=== PATIENT | female | born 1995 | race Two or more races ===

== ENCOUNTER 2024-04-27 03:25 | Emergency (ER) | payer BC, MEDICAID, SELFPAY ==
[2024-04-27 03:26] VITALS: BMI 33.0
--- NOTE | 2024-04-27 03:50 | XR_ITS ---
Examination: PA lateral chest 2 views TECHNIQUE: Upright PA lateral chest 2 views Exam date and time: April 27, 2024 0358 hours Comparison 11/19/2021 INDICATIONS: Coughing chest pain beginning 2 days ago. FINDINGS: Normal heart size. Lungs are clear. The osseous structures are intact IMPRESSION: No active disease
--- NOTE | 2024-04-27 03:50 | EKG_ITS ---
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
--- NOTE | 2024-04-27 03:50 | PD.EDRME ---
Rapid Medical Screening Exam RME Arrival date/time: 04/27/24 03:25 28 year old female present to ED for c/o cough, chest pain, fever for 1 day I have greeted and performed a focused initial assessment of this patient. A comprehensive ED assessment and evaluation of the patient, analysis of all test results, and completion of the medical decision making process will be conducted by additional ED providers. Chief Complaint: Flu Like Symptoms Time Seen by Provider: 04/27/24 03:32
[2024-04-27 03:51] VITALS: BP 119/72; PULSE 95; RESP 18; TEMP 37.1; O2SAT 99
--- NOTE | 2024-04-27 05:13 | PD.EDURI ---
Upper Respiratory Inf. RME/HPI General Chief Complaint: Flu Like Symptoms Stated Complaint: SOB, FEVER, COUGH, PAIN IN CHEST Time Seen by Provider: 04/27/24 03:32 Arrival date/time: 04/27/24 03:25 28 year old female present to emergency room with c/o of cough, fever, chest pain ( with cough) for 1 day. daughter have similar symptoms LOCATION: chest SEVERITY: Symptoms are described as being severe with limitations on activities of daily living CONTEXT: The patient is unable to identify any inciting events. DURATION/TIMING: The symptoms started approximately one day ago and have been constant since and have been progressive getting worse. ASSOCIATED SYMPTOMS: The patient is unable to identify any other associated symptoms. MODIFYING FACTORS: The patient is unable to identify any alleviating or aggravating symptoms. PERTINENT ROS: no nausea,vomiting, diarrhea, no dizziness/headache no rash no loc/syncope episode no abd/back pain no dsyuria,urgency,frequency REVIEW OF SYSTEMS: See History of Present Illness - with the exception of those mentioned in the history of present illness, all other systems reviewed and reported as negative GENERAL: In general the patient is awake, interactive, in an emergency department gurney. HEAD/EYES/EARS/NOSE/THROAT: normo-cephalic, atraumatic, mucus membranes are moist, anicteric, palpebral conjunctiva is pink, trachea is midline. CARDIOVASCULAR: regular rate and regular rhythm, no murmurs, heart sounds are not distant, strong pulses in all four extremities that are equal and symmetric bilateral upper and lower extremities, normal capillary refill. CHEST/PULMONARY: normal chest rise and fall, good air movement, clear to auscultation bilaterally, normal inspiratory to expiratory ratios without evidence of respiratory distress. NECK: No midline/Paraspinal tenderness, no step off ROM/Strenght intact No Kernig and bruzinski sign. No trauma ABDOMEN: soft, not tender, no masses appreciated BACK: normal range of motion without pain. NEUROLOGICAL: cranio-facial features are symmetric, moves all four extremities equally without obvious limitations or weakness. EXTREMITY: no tenderness to palpation over the long bones or large joints of the bilateral upper and lower extremities, no joint swelling, no joint erythema, no signs of trauma, no unilateral leg swelling and no peripheral edema. SKIN: warm, dry, well-perfused, no jaundice, no rash, no telangiectasias or petechia. PSYCH: calm, cooperative, no evidence of psychosis or agitation RME / HPI RME / HPI Narrative: 04/27/24 03:25 28 year old female present to ED for c/o cough, chest pain, fever for 1 day I have greeted and performed a focused initial assessment of this patient. A comprehensive ED assessment and evaluation of the patient, analysis of all test results, and completion of the medical decision making process will be conducted by additional ED providers. Related Data Home Medications ?Medication ?Instructions ?Recorded ?Confirmed vit no.95-ferrous 1 tab PO QDAY 11/05/23 02/17/24 fumarate 28 mg-folic acid 800 mcg tablet () Previous Rx's ?Medication ?Instructions ?Recorded docusate sodium 100 mg capsule 100 mg PO BID #60 caps 02/18/24 (Colace) hydrocortisone 2.5 % topical cream [address] QDAY PRN hemorrhoids 02/18/24 with perineal applicator #30 appful (Proctosol HC) ibuprofen 800 mg tablet 800 mg PO Q6H PRN pain #120 tabs 02/18/24 lanolin 50 % topical ointment 1 applic topical TID PRN skin 02/18/24 irritation #15 tubes witch edwardo 50 % topical pads 1 pad topical BID #100 ea 02/18/24 (Tucks (witch edwardo)) oseltamivir 75 mg capsule (Tamiflu) 75 mg PO BID 5 days #10 caps 04/27/24 Allergies Allergy/AdvReac Type Severity Reaction Status Date / Time No Known Allergies Allergy Verified 02/17/24 19:22 Course Course Course Narrative: Patient presenting with influenza like symptoms.? Obtained influenza A/B screen, which revealed positive influenza.? The following were considered in the patient's differential diagnosis but was not deemed to be consistent with patient's history of present illness and/or physical examination; meningitis, pharyngitis, otitis media, pneumonia, urinary tract infection, peritonsillar abscess, retropharyngeal abscess.? As patient does not present with any signs/symptoms of pneumonia or other complications, further labwork at this time. Educated patient on diagnosis and natural course of influenza.? Supportive care and preventive measures were discussed.? Continue fluid hydration. Follow up with primary physician in 3-5 days if symptoms continue or new problems arise. Return if having persistent high fever, altered mental status, shortness of breath, uncontrolled vomiting, or other concerns.? ? Plan:? Prescribed tamiflu Advised patient on support therapies, including rest, advancement of fluids as tolerated, thorough handwashing w/ soap and H2O, taking OTC ibuprofen or acetaminophen as directed, OTC expectorant/antitussive/decongestants as directed. Advised patient to refrain from visiting work, school, or daycares or visiting women, elderly, or those w/ chronic illnesses. Advised patient to return with new or worsening symptoms. Quality Measures none Orders Category Date Time Status Bedside COVID-19 Antigen Test NOW Care 04/27/24 03:50 Active Bedside Influenza A&B Antigen Test NOW Care 04/27/24 03:51 Completed EKG (ED ONLY) *Do not use* NOW Care 04/27/24 03:51 Completed EKG (ED Only) Stat Exams 04/27/24 03:50 Draft XR chest 2V Stat Exams 04/27/24 03:50 Taken Oseltamivir [Tamiflu] Med 04/27/24 05:23 Discontinued 75 mg PO X1 ONE Vital Signs Vital signs: Vital Signs Temperature 98.8 F 04/27/24 03:51 Pulse Rate 95 04/27/24 03:51 Respiratory Rate 18 04/27/24 03:51 Blood Pressure 119/72 04/27/24 03:51 Pulse Oximetry (%) 99 04/27/24 03:51 Oxygen Delivery Method Room Air 04/27/24 03:51 Procedures -ED EKG Interpretation #1: Date of EK04/27/24 Rate: 81 Interpretation: Reviewed by me EKG Impression: Normal sinus rhythm, No acute ST-T changes, No ectopy, No ischemic changes and Normal QRS Upper Respiratory Infection Patient data External records reviewed:: [facility] previous records Clinical information provided by:: patient Social determinants that could affect healthcare access:: none Patient has the following chronic illnesses:: none How is presenting disease/condition affected by chronic disease/condition?: no chronic disease Evaluation data The following diagnostics were reviewed and interpreted by me:: lab results, radiology exam(s) and EKG tracing(s) Lab and/or radiology exams considered but not ordered:: none Interpretation Summary: xray: nad + flu a -flu b, covid Medications / Prescriptions Medications or Prescriptions considered but not ordered:: none Medication administrations:: Medication Administration History Discontinued Medications Oseltamivir Phosphate (Oseltamivir 75 Mg Capsule) 75 mg PO X1 ONE Stop: 04/27/24 05:24 none Consultations Consultation(s) initiated? (list below): No Diagnosis Upper Respiratory Differential Diagnosis: upper respiratory infection, viral infection, bronchitis, influenza and other (pna, [place]) Most likely diagnosis given after review of the tests above:: flu a Admission Indicated Admission indicated?: not indicated Admission Request Was there a request for admission?: No Disposition Plan Disposition Plan: Discharge Discharge Attestation Discharge Attestation: The patient and all family members were given an opportunity to ask questions and understood the discharge instructions. Discharge instructions specifically effects, indications for sooner follow up or return to the emergency department, and the expected course of current diagnosis. Patient condition: Stable Discharge Plan Plan Patient Disposition: HOME (Self Care) Health Concerns: Follow with PMD as directed Take tylenol or motrin as need Return to ED if sx worsen Prescriptions/Referrals Prescriptions/Med Rec: New oseltamivir [Tamiflu] 75 mg capsule 75 mg PO BID 5 Days Qty: 10 0RF No Action PNV cmb#95-ferrous fumarate-FA [] 28 mg iron- 800 mcg tablet 1 tab PO QDAY Patient Comments: TAKE 1 TABLET BY MOUTH EVERY DAY FOR 90 DAYS ibuprofen 800 mg tablet 800 mg PO Q6H MDD 4 PRN (Reason: pain) Qty: 120 0RF lanolin 50 % ointment 1 applic topical TID PRN (Reason: skin irritation) Qty: 15 0RF docusate sodium [Colace] 100 mg capsule 100 mg PO BID Qty: 60 0RF Tucks (witch edwardo) 50 % pads, medicated 1 pad topical BID Qty: 100 0RF hydrocortisone [Proctosol HC] 2.5 % cream with perineal applicator [address] QDAY PRN (Reason: hemorrhoids) Qty: 30 0RF Referrals: Titus Pickering PA-C [Primary Care Provider] - In 1 week Problem List Clinical Impression: Influenza Patient/Caregiver Discharge Instructions Education Materials: ED Influenza (Adult) Print Language: Citizen Of [place] Stand Alone Forms: Sol Award Info., Patient Portal Info Letter
[2024-04-27] MEDS: OSELTAMIVIR 75 MG CAPSULE PO (05:49)
== END 2024-04-27 06:17 | disposition home or self-care (01) ==
PROVIDERS: Emergency Provider Emergency Medicine; PCP Family Medicine
DX: J11.1 Influenza due to unidentified influenza virus with other respiratory manifestations (principal)
CPT/HCPCS: 71046; 87400; 87811; 93005; 99283; A9270

== ENCOUNTER 2024-05-14 15:10 | Emergency (ER) | payer MEDICAID, SELFPAY ==
[2024-05-14 15:11] VITALS: BMI 34.0
[2024-05-14 15:34] VITALS: BP 141/95; PULSE 78; RESP 18; TEMP 36.8; O2SAT 98
--- NOTE | 2024-05-14 15:40 | EKG_ITS ---
[facility] Test Date: 2024-05-14 Pat Name: MARTHA GUTIERREZ Department: Room: - Gender: Female Group [employer] Machine: : 1995 Requested By: Errol Hilario Order Number: [id number] Reading MD: Errol Hilario Measurements Intervals [place] Rate: 70 P: 32 [place]: 141 QRS: 34 QRSD: 88 T: 23 QT: 386 QTc: 418 Interpretive Statements SINUS RHYTHM Compared to ECG 04/27/2024 04:08:30 No significant changes /store/S0/[id number].pdf
--- NOTE | 2024-05-14 16:01 | XR_ITS ---
Examination: CT brain head without contrast. 2-D sagittal coronal reconstructions Date and time of exam:May 14, 2024 1621 hours INDICATIONS: Onset headaches with dizziness today CTDI: vol (mGy):56 DLP: (mGycm):1129 Technique: Multiple CT axial sections of the brain have been obtained, 5 mm slice thickness. Contrast has not been administered. 2-D sagittal, coronal reconstructions have been obtained Low dose protocols were performed. One or more of the following dose reduction techniques were used; automated exposure control, adjustment of the mA and/or KV according to patient size, use of iterative reconstruction technique. Findings: No significant ventricular enlargement. Intra-axial or extra-axial hemorrhage density is not seen. No mass effect or midline shift Basal cisterns are not remarkable. Fourth ventricle is midline. Cranial vault intact. Impression: Negative for acute hemorrhage, mass effect or midline shift Chronic ethmoid maxillary antral sinusitis
--- NOTE | 2024-05-14 16:02 | PD.EDRME ---
Rapid Medical Screening Exam E Arrival date/time: 05/14/24 15:10 28-year-old female presents to the emergency department with complaints of intermittent dizziness ongoing for 1 month. I have greeted and performed a focused initial assessment of this patient. Initial appropriate labs ordered at this time. A comprehensive ED assessment and evaluation of the patient and analysis of all test and completion of medical decision making process will be conducted by additional ED provider. Chief Complaint: Dizziness Time Seen by Provider: 05/14/24 15:53 Vital signs: Vital Signs Temperature 98.3 F 05/14/24 15:34 Pulse Rate 78 05/14/24 15:34 Respiratory Rate 18 05/14/24 15:34 Blood Pressure 141/95 H 05/14/24 15:34 Pulse Oximetry (%) 98 05/14/24 15:34 Oxygen Delivery Method Room Air 05/14/24 15:34
[2024-05-14 16:32] LABS: Basophils # (Auto) 0.1 Thou/mm3 (0.0-0.2); Basophils % (Auto) 1 % (0-2.5); Eosinophils # (Auto) 0.6 Thou/mm3 (0.0-0.5); Eosinophils % (Auto) 5 % (0-10); Hematocrit 41.5 % (36.0-46.0); Hemoglobin 14.1 g/dL (12.0-16.0); Immature Granulocytes % (Auto) 0 % (0-0); Immature Granulocytes Auto 0.02 Thou/mm3 (0.00-0.00); Lymphocytes # (Auto) 2.5 Thou/mm3 (1.0-4.8); Lymphocytes % (Auto) 24 % (10-50); Mean Corpuscular Hemoglobin 29.3 pg (25.0-35.0); Mean Corpuscular Volume 86 fL (80-100); Monocytes # (Auto) 0.9 Thou/mm3 (0.0-0.8); Monocytes % (Auto) 8 % (0-12); Neutrophils # (Auto) 6.5 Thou/mm3 (1.8-7.7); Neutrophils % (Auto) 62 % (37-80); Nucleated Red Blood Cell % 0 /100 WBC (0); Platelet Count 253 Thou/mm3 (140-440); RDW Standard Deviation 42.1 fL (36.4-46.3); Red Blood Count 4.82 Miln/mm3 (4.00-5.20); White Blood Count 10.5 Thou/mm3 (3.6-11.0)
[2024-05-14 17:15] LABS: Alanine Aminotransferase 28 U/L (10-49); Albumin, Serum 4.6 gm/dL (3.5-5.0); Albumin/Globulin Ratio 1.5 (1.2-2.2); Alkaline Phosphatase 122 U/L (46-116); Anion Gap 9 (7-16); Aspartate Amino Transferase 19 U/L (0-34); BUN/Creatinine Ratio 14 Ratio (12-20); Bilirubin,Total 0.3 mg/dL (0.3-1.2); Blood Urea Nitrogen 11 mg/dL (9-23); Calcium 9.6 mg/dL (8.3-10.6); Calcium (Corrected) 9.6 mg/dL (8.5-10.1); Chloride 103 mMol/L (98-107); Creatinine (Component) 0.8 mg/dL (0.6-1.3); Estimated Creatinine Clearance 133.4 mL/min (>60); Globulin 3.1 gm/dL (2.3-3.5); Glucose 98 mg/dL (74-106); Lipase 43 U/L (12-53); Osmolality,Calculated 278 (275-295); Potassium 4.1 mMol/L (3.4-5.1); Sodium 140 mMol/L (136-145); Total Protein 7.7 gm/dL (5.7-8.2); eGFR > 60 See Note
[2024-05-14 17:23] LABS: Collection Type, Urine Clean Catch
[2024-05-14 17:32] LABS: HCG Qualitative,Urine Negative
[2024-05-14 17:33] LABS: Bilirubin,Urine Negative (Negative); Blood,Urine Negative (Negative); Clarity,Urine Clear (Clear/Hazy); Color,Urine Colorless (Lt Yel-Yel); Glucose, Urine Negative (Negative); Ketones,Urine Negative (Negative); Leukocyte Esterase,Urine Negative (Negative); Nitrite,Urine Negative (Negative); PH,Urine 6.5 (5.0-7.0); Protein,Urine Negative (Neg - Trace); RBC,Urine 2 /hpf (0-3); Specific Gravity,Urine 1.008 (1.001-1.035); Squamous Epithelial Cell,Urine 4 /hpf (0-5); Urobilinogen,Urine Negative mg/dL (0.0-1.0); WBC,Urine 1 /hpf (0-5)
--- NOTE | 2024-05-14 19:34 | EDNOTE_ITS ---
ED Dizzyness RME/HPI General Chief Complaint: Dizziness Stated Complaint: DIZZY FOR 3 WEEKS Time Seen by Provider: 05/14/24 15:53 Source: patient Arrival date/time: 05/14/24 15:10 28-year-old female presents emergency department complaining of intermittent dizziness and headache that been ongoing for 3 months. Denies fever, chills, extremity weakness, vomiting, vision changes, or any other associated symptoms. Mode of arrival: ambulatory Limitations: no limitations RME / HPI RME / HPI Narrative: 05/14/24 15:10 28-year-old female presents to the emergency department with complaints of intermittent dizziness ongoing for 1 month. I have greeted and performed a focused initial assessment of this patient. Initial appropriate labs ordered at this time. A comprehensive ED assessment and evaluation of the patient and analysis of all test and completion of medical decision making process will be conducted by additional ED provider. Related Data Home Medications ?Medication ?Instructions ?Recorded ?Confirmed vit no.95-ferrous 1 tab PO QDAY 11/05/23 02/17/24 fumarate 28 mg-folic acid 800 mcg tablet () Previous Rx's ?Medication ?Instructions ?Recorded docusate sodium 100 mg capsule 100 mg PO BID #60 caps 02/18/24 (Colace) hydrocortisone 2.5 % topical cream 1 applic MT QDAY PRN hemorrhoids 02/18/24 with perineal applicator #30 appful (Proctosol HC) ibuprofen 800 mg tablet 800 mg PO Q6H PRN pain #120 tabs 02/18/24 lanolin 50 % topical ointment 1 applic topical TID PRN skin 02/18/24 irritation #15 tubes witch edwardo 50 % topical pads 1 pad topical BID #100 ea 02/18/24 (Tucks (witch edwardo)) acetaminophen 500 mg capsule 500 mg PO Q6H PRN pain #30 caps 05/14/24 Allergies Allergy/AdvReac Type Severity Reaction Status Date / Time No Known Allergies Allergy Verified 05/14/24 15:12 Review of Systems Review of Systems Systems Reviewed: All systems reviewed, normal except as documented Constitutional Constitutional: Reports system reviewed and no additional complaints, except as documented, Denies body ache(s), Denies chills, Denies fever(s) and Reports headache(s) Eyes Eyes: Reports system reviewed and no additional complaints, except as documented and Denies change in vision ENT Ears, Nose, Mouth, and Throat: Reports system reviewed and no additional complaints, except as documented, Denies disequilibrium, Denies dizziness, Reports headache(s), Denies sore throat and Denies vertigo Cardiovascular Cardiovascular: Reports system reviewed and no additional complaints, except as documented, Denies chest pain and Denies dyspnea Respiratory Respiratory: Reports system reviewed and no additional complaints, except as documented, Denies chest congestion, Denies cough and Denies dyspnea Gastrointestinal Gastrointestinal: Reports system reviewed and no additional complaints, except as documented, Denies abdominal pain, Denies nausea and Denies vomiting Musculoskeletal Musculoskeletal: Reports system reviewed and no additional complaints, except as documented, Denies abnormal gait and Denies arthralgias Integumentary/Breasts Skin/Breast: Reports system reviewed and no additional complaints, except as documented, Denies erythema, Denies rash and Denies wounds Neurologic Neurologic: Reports system reviewed and no additional complaints, except as documented, Denies abnormal gait, Denies disequilibrium, Denies dizziness, Reports headache(s) and Denies vertigo Past Medical History Past Medical History NEUROLOGIC: Negative Neurological Disorders or Seizures CARDIAC: Negative Cardiac Disorders, Congestive Heart Failure, Edema or Cellulitis RESPIRATORY: Positive Asthma (inhaler last winter); Negative Chronic Obstructive Pulmonary Disease (COPD), Emphysema, Pneumonia, Pulmonary Fibrosis, Tuberculosis, Pulmonary Embolism, Pulmonary Edema or Sleep Apnea GASTROINTESTINAL: Positive Gastrointestinal Disorders, Pancreatitis, Gall Bladder Disease and Obesity; Negative Hepatitis GENITOURINARY: Positive Genitourinary Disorders (hx UTI); Negative Renal Disease REPRODUCTIVE: Positive Previous Pregnancies MUSCULOSKELETAL: Negative Musculoskeletal Disorders ENDOCRINE: Negative Endocrine Disorders, Diabetes Mellitus Type 1 or Diabetes Mellitus Type 2 HEMATOLOGIC: Negative Blood Disorders, Anemia or Sickle Cell Disease OTHER HISTORY: Negative Hospitalization, Autoimmune Disease, Shingles, Falls, Blood Transfusions, Anesthesia Reactions, Chemotherapy, Radiation Therapy, MRSA, Chicken Pox, Measles, Mumps or Cancer Family History FAMILY HISTORY: Positive Family Respiratory Disorders (grandfather -Asthma); Negative Family Psychiatric Problems, Family Cardiac Disorders, Family Gastrointestinal Problems, Family Cancer, Family Surgery or Family Anesthesia Reaction Surgical History SURGICAL: Negative Pacemaker or Section Social History SMOKING STATUS: Never smoker SECOND HAND EXPOSURE: No ED Exam General Limitations: Present no limitations General appearance: Present alert and in no apparent distress Head Head exam: Present atraumatic Eye Eye exam: Present normal appearance, PERRL and EOMI ENT ENT exam: Present normal exam, normal oropharynx and mucous membranes moist Neck Neck exam: Present normal inspection, full ROM and trachea midline Chest Chest inspection: Present normal inspection and symmetric chest wall rise Respiratory Respiratory exam: Present normal lung sounds bilaterally Cardiovascular Cardiovascular exam: Present regular rate, normal rhythm and normal heart sounds Abdominal Exam Abdominal exam: Present soft and normal bowel sounds Extremities Exam Extremities exam: Present normal inspection and full ROM Back Exam Back exam: Present normal inspection and full ROM Neurological Exam Neurological exam: Present alert, oriented X3 and CN II-XII intact Psychiatric Psychiatric exam: Present normal affect and normal mood Skin Skin exam: Present warm, dry, intact and normal color Course Quality Measures none Orders Category Date Time Status EKG (ED ONLY) *Do not use* NOW Care 05/14/24 15:[address] head/brain wo con Stat Exams 05/14/24 16:01 Completed EKG (ED Only) Stat Exams 05/14/24 15:40 Draft CBC Stat Lab 05/14/24 16:15 Completed Comprehensive Metabolic Panel Stat Lab 05/14/24 16:15 Completed HCG Qualitative,Urine Stat Lab 05/14/24 16:45 Completed Lipase Stat Lab 05/14/24 16:15 Completed Urinalysis Stat Lab 05/14/24 16:45 Completed Vital Signs Vital signs: Vital Signs Temperature 98.3 F 05/14/24 15:34 Pulse Rate 78 05/14/24 15:34 Respiratory Rate 18 05/14/24 15:34 Blood Pressure 141/95 H 05/14/24 15:34 Pulse Oximetry (%) 98 05/14/24 15:34 Oxygen Delivery Method Room Air 05/14/24 15:34 Percent room air within normal limits Procedures -ED EKG Interpretation #1: Date of EK05/14/24 Time of EK:44 Rate: 70 Interpretation: Interpreted by me EKG Impression: Normal sinus rhythm, No acute ST-T changes, No ectopy, No ischemic changes and Normal QRS Dizziness MDM Narrative MDM Narrative:: 28-year-old female presents emergency department complaining of intermittent dizziness and headache that been ongoing for 3 months. Denies fever, chills, extremity weakness, vomiting, vision changes, or any other associated symptoms. CBC is unremarkable for any leukocytosis. CMP was unremarkable for any elevated LFTs or gross electro abnormalities. Urinalysis was unremarkable as well. EKG sinus rhythm. CT of head unremarkable other than chronic ethmoid sinusitis which may be causing her headaches. Patient GCS of 15 with steady gait and appears nontoxic and is hemodynamically stable. Patient data External records reviewed:: [facility] previous records Clinical information provided by:: patient Social determinants that could affect healthcare access:: none Patient has the following chronic illnesses:: See chart How is presenting disease/condition affected by chronic disease/condition?: une ffected by Evaluation data The following diagnostics were reviewed and interpreted by me:: lab results, radiology exam(s) and EKG tracing(s) Lab and/or radiology exams considered but not ordered:: Ordered Interpretation Summary: Interpreted by me Medications / Prescriptions Medications or Prescriptions considered but not ordered:: N/A Medication administrations:: N/A Consultations Consultation(s) initiated? (list below): No Diagnosis Dizziness Differential Diagnosis: benign paroxysmal positional vertigo, orthostatic hypotension, vertebral basilar insufficiency, cerebrovascular accident and transient cerebral ischemia Most likely diagnosis given after review of the tests above:: Chronic ethmoid sinusitis Admission Indicated Admission indicated?: not indicated Admission Request Was there a request for admission?: No Disposition Plan Disposition Plan: Discharge Discharge Attestation Discharge Attestation: The patient and all family members were given an opportunity to ask questions and understood the discharge instructions. Discharge instructions specifically effects, indications for sooner follow up or return to the emergency department, and the expected course of current diagnosis. Patient condition: Stable Discharge Plan Plan Patient Disposition: HOME (Self Care) Disposition Comment: Stable Prescriptions/Referrals Prescriptions/Med Rec: New acetaminophen 500 mg capsule 500 mg PO Q6H PRN (Reason: pain) Qty: 30 0RF No Action PNV cmb#95-ferrous fumarate-FA [] 28 mg iron- 800 mcg tablet 1 tab PO QDAY Patient Comments: TAKE 1 TABLET BY MOUTH EVERY DAY FOR 90 DAYS ibuprofen 800 mg tablet 800 mg PO Q6H MDD 4 PRN (Reason: pain) Qty: 120 0RF lanolin 50 % ointment 1 applic topical TID PRN (Reason: skin irritation) Qty: 15 0RF docusate sodium [Colace] 100 mg capsule 100 mg PO BID Qty: 60 0RF Tucks (witch edwardo) 50 % pads, medicated 1 pad topical BID Qty: 100 0RF hydrocortisone [Proctosol HC] 2.5 % cream with perineal applicator 1 applic MT QDAY PRN (Reason: hemorrhoids) Qty: 30 0RF Referrals: Kendell Crabtree MD [Primary Care Provider] - In 1 week Problem List Clinical Impression: Chronic ethmoidal sinusitis Patient/Caregiver Discharge Instructions Discharge Activity: activity as tolerated Education Materials: Understanding Your Sinuses, ED Sinusitis (No Antibiotics) Additional Instructions: Plenty fluids and get plenty of rest. Take Tylenol as needed for pain. Follow-up with primary care provider and request referral to ENT if symptoms persist. Return to the emergency department for any worsening symptoms or as needed. Print Language: [place] Stand Alone Forms: Sol Award Info., Patient Portal Info Letter KADEEM/KERON Supervising Physician KADEEM/KERON Supervising Physician: Dr. Rai
[2024-05-14 19:44] VITALS: BP 140/88; PULSE 77; RESP 17; TEMP 36.7; O2SAT 97
== END 2024-05-14 19:49 | disposition home or self-care (01) ==
PROVIDERS: Nurse Practitioner Primary Care; Emergency Provider Emergency Medicine; PCP Family Medicine
DX: J32.2 Chronic ethmoidal sinusitis (principal); R42 Dizziness and giddiness
CPT/HCPCS: 36415; 70450; 80053; 81001; 81025; 83690; 85025; 93005; 99284

== ENCOUNTER 2024-06-04 17:05 | Emergency (ER) | payer MEDICAID, SELFPAY ==
[2024-06-04 17:06] VITALS: BMI 34.7
[2024-06-04 17:23] VITALS: BP 139/88; PULSE 100; RESP 18; TEMP 37.5; O2SAT 96
--- NOTE | 2024-06-04 17:40 | EDNOTE_ITS ---
ED General RME/HPI General Chief complaint: Fever Stated complaint: FEVER/CHILLS BODYACHE/DISCHARGE FROM LEFT BREAST Time Seen by Provider: 06/04/24 17:32 Arrival date/time: 06/04/24 17:05 28-year-old female presents to the emergency department today complaints of left breast discharge patient reports he is approximately 3 months and is currently breast-feeding patient does report she has had a fever Limitations: no limitations Related Data Home Medications ?Medication ?Instructions ?Recorded ?Confirmed vit no.95-ferrous 1 tab PO QDAY 11/05/2301/24 fumarate 28 mg-folic acid 800 mcg tablet () Previous Rx's ?Medication ?Instructions ?Recorded docusate sodium 100 mg capsule 100 mg PO BID #60 caps 02/18/24 (Colace) hydrocortisone 2.5 % topical cream 1 applic MS QDAY MS N hemorrhoids 02/18/24 with perineal applicator #30 appful (Proctosol HC) ibuprofen 800 mg tablet 800 mg PO Q6H PRN pain #120 tabs 02/18/24 lanolin 50 % topical ointment 1 applic topical TID PRN skin 02/18/24 irritation #15 tubes witch edwardo 50 % topical pads 1 pad topical BID #100 e a 02/18/24 (Tucks (witch edwardo)) acetaminophen 500 mg capsule 500 mg PO Q6H PRN pain #3 0 caps 05/14/24 amoxicillin 875 mg-potassium 1 tab PO BID 10 days #20 tabs 06/04/24 clavulanate 125 mg tablet ibuprofen 800 mg tablet 800 mg PO TID PRN pain #30 t abs 06/04/24 Allergies Allergy/AdvReac Type Severity Reaction Status Date / Time No Known Allergies Allergy Verified 06/04/24 17:08 Review of Systems Review of Systems Systems Reviewed: All systems reviewed, normal except as documented Constitutional Constitutional: Reports system reviewed and no additional complaints, except as documented, Denies fever(s) and Denies headache(s) Eyes Eyes: Reports system reviewed and no additional complaints, except as documented and Denies blurry vision ENT Ears, Nose, Mouth, and Throat: Reports system reviewed and no additional complaints, except as documented, Denies headache(s), Denies nasal congestion and Denies nasal discharge Cardiovascular Cardiovascular: Reports system reviewed and no additional complaints, except as documented, Denies chest pain and Denies dyspnea Respiratory Respiratory: Reports system reviewed and no additional complaints, except as documented, Denies chest congestion, Denies cough and Denies dyspnea Gastrointestinal Gastrointestinal: Reports system reviewed and no additional complaints, except as documented and Denies abdominal pain Genitourinary Genitourinary: Reports nipple discharge Integumentary/Breasts Skin/Breast: Reports system reviewed and no additional complaints, except as documented, Denies rash, Denies skin swelling, Denies unusual bruising, Reports breast pain and Reports nipple discharge Neurologic Neurologic: Reports system reviewed and no additional complaints, except as documented, Reports as per HPI and Denies headache(s) Past Medical History Past Medical History NEUROLOGIC: Negative Neurological Disorders or Seizures CARDIAC: Negative Cardiac Disorders, Congestive Heart Failure, Edema or Cellulitis RESPIRATORY: Positive Asthma (inhaler last winter); Negative Chronic Obstructive Pulmonary Disease (COPD), Emphysema, Pneumonia, Pulmonary Fibrosis, Tuberculosis, Pulmonary Embolism, Pulmonary Edema or Sleep Apnea GASTROINTESTINAL: Positive Gastrointestinal Disorders, Pancreatitis, Gall Bladder Disease and Obesity; Negative Hepatitis GENITOURINARY: Positive Genitourinary Disorders (hx UTI); Negative Renal Disease REPRODUCTIVE: Positive Previous Pregnancies MUSCULOSKELETAL: Negative Musculoskeletal Disorders ENDOCRINE: Negative Endocrine Disorders, Diabetes Mellitus Type 1 or Diabetes Mellitus Type 2 HEMATOLOGIC: Negative Blood Disorders, Anemia or Sickle Cell Disease OTHER HISTORY: Negative Hospitalization, Autoimmune Disease, Shingles, Falls, Blood Transfusions, Anesthesia Reactions, Chemotherapy, Radiation Therapy, MRSA, Chicken Pox, Measles, Mumps or Cancer Family History FAMILY HISTORY: Positive Family Respiratory Disorders (grandfather -Asthma); Negative Family Psychiatric Problems, Family Cardiac Disorders, Family Ga strointestinal Problems, Family Cancer, Family Surgery or Family Anesthesia Reaction Surgical History SURGICAL: Negative Pacemaker or Section Social History SMOKING STATUS: Never smoker SECOND HAND EXPOSURE: No ED Exam General Limitations: Present no limitations General appearance: Present alert and in no apparent distress Head Head exam: Present atraumatic, normocephalic and normal inspection Eye Eye exam: Present normal appearance, PERRL and EOMI; Absent conjunctival injection ENT ENT exam: Present normal exam, normal oropharynx and mucous membranes moist Neck Neck exam: Present normal inspection, full ROM and trachea midline Chest Chest inspection: Present symmetric chest wall rise and tenderness (Left breast pain) Respiratory Respiratory exam: Present normal lung sounds bilaterally Cardiovascular Cardiovascular exam: Present regular rate, normal rhythm and normal heart sounds Abdominal Exam Abdominal exam: Present soft and normal bowel sounds Extremities Exam Extremities exam: Present normal inspection and full ROM Back Exam Back exam: Present normal inspection and full ROM Neurological Exam Neurological exam: Present alert, oriented X3 and CN II-XII intact Psychiatric Psychiatric exam: Present normal affect and normal mood Skin Skin exam: Present warm, dry, intact and normal color Course Quality Measures none Orders Category Date Time Status Lidocaine 1% 20 ml [Xylocaine 1% 20 ML] Med 06/04/24 17:32 Discontinued 2.1 ml INFL X1 ONE cefTRIAXone [Rocephin] Med 06/04/24 17:32 Discontinued 1,000 mg IM X1 ONE Vital Signs Vital signs: Vital Signs Temperature 99.5 F 06/04/24 17:23 Pulse Rate 100 06/04/24 17:23 Respiratory Rate 18 06/04/24 17:23 Blood Pressure 139/88 H 06/04/24 17:23 Pulse Oximetry (%) 96 06/04/24 17:23 Oxygen Delivery Method Room Air 06/04/24 17:23 O2 saturation 96% room air within normal limits [facility] Patient data External records reviewed:: [facility] previous records Clinical information provided by:: patient Social determinants that could affect healthcare access:: none Patient has the following chronic illnesses:: None How is presenting disease/condition affected by chronic disease/condition?: no chronic disease Evaluation data The following diagnostics were reviewed and interpreted by me:: other (specify) (N/A) Lab and/or radiology exams considered but not ordered:: Consider not ordered Interpretation Summary: N/A Medications Medications considered but not ordered:: Given Medication administrations:: Medication Administration History Discontinued Medications Ceftriaxone Sodium (Ceftriaxone Sod Inj 1,000 Mg Vial) 1,000 mg IM X1 ONE Stop: 06/04/24 17:33 Last Admin: 06/04/24 17:59 Dose: 1,000 mg Documented By: CHEYANNE Comments: 2.1 ml lidocaine Lidocaine HCl (Lidocaine Hcl 1% 20 Ml Vial) 2.1 ml INFL X1 ONE Stop: 06/04/24 17:33 Last Admin: 06/04/24 18:00 Dose: 2.1 ml Documented By: KF Given Consultations Consultation(s) initiated? (list below): No Diagnosis Differential Diagnosis ED Complaint MDM: Abscess, cellulitis, mastitis Most likely diagnosis given after review of the tests above:: Mastitis Admission Indicated Admission indicated?: not indicated Explain why admission is indicated or not indicated:: No criteria Admission Request Was there a request for admission?: No Disposition Plan Disposition Plan: Discharge Discharge Attestation Discharge Attestation: The patient and all family members were given an opportunity to ask questions and understood the discharge instructions. Discharge instructions specifically effects, indications for sooner follow up or return to the emergency department, and the expected course of current diagnosis. Patient condition: Stable Medical Decision Making MDM Narrative MDM Narrative: 28-year-old female presents to the emergency department today complaints of left breast discharge patient reports he is approximately 3 months and is currently breast-feeding patient does report she has had a fever On exam patient is very well-appearing patient does not appear ill or toxic patient has no redness or warmth to her breast Currently patient is afebrile nontoxic in appearance I explained to the patient we will give her Rocephin and give her prescription for outpatient antibiotics Explained to the patient would like her to return within next 48 hours for reevaluation for worsening symptoms or concerns return to the ER immediately patient states understanding Differential Diagnosis Differential Diagnosis: Abscess, cellulitis, mastitis Medical Records Medical records reviewed: Yes I reviewed the patient's medical records. Discharge Plan Plan Patient Disposition: HOME (Self Care) Disposition Comment: stable Prescriptions/Referrals Prescriptions/Med Rec: New ibuprofen 800 mg tablet 800 mg PO TID PRN (Reason: pain) Qty: 30 0RF amoxicillin-pot clavulanate 875-125 mg tablet 1 tab PO BID 10 Days Qty: 20 0RF No Action acetaminophen 500 mg capsule 500 mg PO Q6H PRN (Reason: pain) Qty: 30 0RF PNV cmb#95-ferrous fumarate-FA [] 28 mg iron- 800 mcg tablet 1 tab PO QDAY Patient Comments: TAKE 1 TABLET BY MOUTH EVERY DAY FOR 90 DAYS ibuprofen 800 mg tablet 800 mg PO Q6H MDD 4 PRN (Reason: pain) Qty: 120 0RF lanolin 50 % ointment 1 applic topical TID PRN (Reason: skin irritation) Qty: 15 0RF docusate sodium [Colace] 100 mg capsule 100 mg PO BID Qty: 60 0RF Tucks (witch edwardo) 50 % pads, medicated 1 pad topical BID Qty: 100 0RF hydrocortisone [Proctosol HC] 2.5 % cream with perineal applicator 1 applic MS QDAY PRN (Reason: hemorrhoids) Qty: 30 0RF Problem List Clinical Impression: Mastitis Patient/Caregiver Discharge Instructions Education Materials: ED Mastitis Additional Instructions: Please follow up with your primary care doctor in the next 24-48hrs for any worsening symptoms return here immediately Print Language: Sami Stand Alone Forms: Sol Award Info., Patient Portal Info Letter PA/[employer] OPERATOR Supervising Physician PA/[employer] OPERATOR Supervising Physician: Dr Hilario
[2024-06-04] MEDS: cefTRIAXone SOD INJ 1,000 MG VIAL 1000 MG IM (17:59)
[2024-06-04] MEDS: LIDOCAINE HCL 1% 20 ML VIAL 2.1 ML INFL (18:00)
== END 2024-06-04 18:25 | disposition home or self-care (01) ==
LOC: SERX 18:25
PROVIDERS: Emergency Provider Emergency Medicine
DX: N61.0 Mastitis without abscess (principal)
CPT/HCPCS: 96372; 99283; J0696; J3490

== ENCOUNTER 2024-09-03 03:12 | Emergency (ER) | payer MEDICAID, SELFPAY ==
[2024-09-03 03:14] VITALS: BMI 33.0
[2024-09-03 03:15] VITALS: BP 117/76; PULSE 86; RESP 19; TEMP 36.8; O2SAT 97
--- NOTE | 2024-09-03 03:40 | PD.EDABDPN ---
ED Abdominal Pain RME/HPI General Chief Complaint: Abdominal Pain Stated complaint: R upper abd pain and bloating Time seen by provider: 09/03/24 03:44 Arrival date/time: 09/03/24 03:12 RME / HPI RME / HPI narrative: This section includes all my notes and documentations, including HPI, PE, and ED course. Ta Bowles MD HPI: 28 y/o 6-month post- female with SHx of Cholecystectomy presents to ED c/o RUQ abdominal pain, nausea, vomiting, diarrhea, bloating x approximately 2.5 hours. Denies dysuria or any other urinary symptoms. Patient ate normally yesterday, but does admit to constipation prior to start of diarrhea. Cholecystectomy performed in 2021 showing stone lodged in common bile duct, ERCP performed, then later found to have pancreatitis within hours of procedure. Patient is currently breast-feeding and only uses an inhaler for management of Asthma. No other complaints. ROS: All negative except as documented in HPI. Physical Exam: General: Alert and oriented. In obvious pain. Eyes: Conjunctivae and lids clear. ENT: No nasal congestion. Neck: Supple. Heart: RRR. Lungs: No respiratory distress. Good air movement. No rhonchi, wheezing, rales. Abdomen: Soft with epigastric and RUQ tenderness. Normal bowel sounds. No distension. No rebound or guarding. Back: No CVA tenderness. Skin: Warm and dry. Neuro: Alert and oriented X 3. I ordered IV fluid, Zofran, morphine, and diagnostic tests. At 6 AM on 09/03/2024, the care of the patient was transferred to Dr. Camara. Ta Bowles MD Related Data Home Medications ?Medication ?Instructions ?Recorded ?Confirmed vit no.95-ferrous 1 tab PO QDAY 11/05/23 02/17/24 fumarate 28 mg-folic acid 800 mcg tablet () Previous Rx's ?Medication ?Instructions ?Recorded docusate sodium 100 mg capsule 100 mg PO BID #60 caps 02/18/24 (Colace) hydrocortisone 2.5 % topical cream 1 applic IL QDAY PRN hemorrhoids 02/18/24 with perineal applicator #30 appful (Proctosol HC) ibuprofen 800 mg tablet 800 mg PO Q6H PRN pain #120 tabs 02/18/24 lanolin 50 % topical ointment 1 applic topical TID PRN skin 02/18/24 irritation #15 tubes witch edwardo 50 % topical pads 1 pad topical BID #100 ea 02/18/24 (Tucks (witch edwardo)) acetaminophen 500 mg capsule 500 mg PO Q6H PRN pain #30 caps 05/14/24 ibuprofen 800 mg tablet 800 mg PO TID PRN pain #30 tabs 06/04/24 Allergies Allergy/AdvReac Type Severity Reaction Status Date / Time No Known Allergies Allergy Verified 09/03/24 03:17 Review of Systems Review of Systems Systems Reviewed: All systems reviewed, normal except as documented Past Medical History Past Medical History RESPIRATORY: Positive Asthma (inhaler last winter) GASTROINTESTINAL: Positive Gastrointestinal Disorders, Pancreatitis, Gall Bladder Disease and Obesity GENITOURINARY: Positive Genitourinary Disorders (hx UTI) REPRODUCTIVE: Positive Previous Pregnancies ED Exam Narrative Physical exam: Refer to [facility] Course Quality Measures none Orders Category Date Time Status Saline [Insert IV] NOW Care 09/03/24 03:[address] abdomen pelvis wo con Stat Exams 09/03/24 03:43 Ordered US gall bladder Stat Exams 09/03/24 03:44 Taken Amylase Stat Lab 09/03/24 04:40 Received Bilirubin,Direct Stat Lab 09/03/24 04:40 Received CBC Stat Lab 09/03/24 04:40 Received CMP [Comprehensive Metabolic Panel] Stat Lab 09/03/24 04:40 Received HCG Qualitative,Urine Stat Lab 09/03/24 03:41 Ordered Lipase Stat Lab 09/03/24 04:40 Received Magnesium Stat Lab 09/03/24 04:40 Received UA, C/S IF [Urinalysis, C/S if Indicated] Stat Lab 09/03/24 03:41 Ordered Morphine Inj Med 09/03/24 04:00 Discontinued 6 mg IVP X1 ONE Ondansetron Inj [Zofran Inj] Med 09/03/24 03:42 Discontinued 4 mg IV X1 ONE Sodium Chloride 0.9% 1000 ml [Ns] 1,000 ml Med 09/03/24 03:42 Discontinued IV 999 mls/hr Vital Signs Vital signs: Vital Signs Temperature 98.3 F 09/03/24 03:15 Pulse Rate 86 09/03/24 03:15 Respiratory Rate 19 09/03/24 03:15 Blood Pressure 117/76 09/03/24 03:15 Pulse Oximetry (%) 97 09/03/24 03:15 Oxygen Delivery Method Room Air 09/03/24 03:15 Abdominal Pain MDM MDM Narrative MDM Narrative:: Scribe Attestation: ILisandra, am scribing for and in the presence of Dr. Bowles. Provider Notation: Although this document has been carefully reviewed, there may still be some phonetic and other typographical errors.? These errors are purely grammatical due to imperfections in the software program and should not be construed in any way to? compromise the substance of the patient's medical care during this visit. 28 y/o 6 month post- female with Hx of Cholecystectomy presents to ED c/o RUQ abdominal pain, nausea, vomiting, diarrhea, bloating x approximately 2.5 hours. Patient data External records reviewed:: [facility] previous records Clinical information provided by:: patient Social determinants that could affect healthcare access:: none Patient has the following chronic illnesses:: Asthma, Pancreatitis, Gall Bladder Disease and Obesity How is presenting disease/condition affected by chronic disease/condition?: exacerbated by Evaluation data The following diagnostics were reviewed and interpreted by me:: other (specify) (Diagnostic test results pending.) Lab and/or radiology exams considered but not ordered:: None Interpretation Summary: Diagnostic test results pending. Medications / Prescriptions Medications or Prescriptions considered but not ordered:: None Medication administrations:: Medication Administration History Discontinued Medications Sodium Chloride (Ns) 1,000 mls @ 999 mls/hr IV .Q1H1M ONE Stop: 09/03/24 04:42 Last Admin: 09/03/24 05:07 Dose: 999 mls/hr Documented By: YANA Morphine Sulfate (Morphine Sulf Inj 10 Mg/Ml Vial) 6 mg IVP X1 ONE Stop: 09/03/24 04:01 Last Admin: 09/03/24 05:06 Dose: 6 mg Documented By: YANA Ondansetron HCl (Ondansetron Inj 2 Mg/Ml Inj 2 Ml) 4 mg IV X1 ONE; Protocol Stop: 09/03/24 03:43 Last Admin: 09/03/24 05:05 Dose: 4 mg Documented By: CG Zofran, Morphine, IVF Consultations Consultation(s) initiated? (list below): No Diagnosis Differential diagnosis abdominal pain: abdominal pain, acute appendicitis, calculus of kidney, constipation, diverticulitis, endometriosis, gastroenteritis, pancreatitis and small bowel obstruction Most likely diagnosis given after review of the tests above:: Diagnostic test results pending Admission Indicated Admission indicated?: not indicated Explain why admission is indicated or not indicated:: Diagnostic test results pending Admission Request Was there a request for admission?: No Disposition Plan Disposition Plan: other (specify) (Care of the patient was transferred to next shift physician.) Discharge Plan Prescriptions/Referrals Prescriptions/Med Rec: No Action acetaminophen 500 mg capsule 500 mg PO Q6H PRN (Reason: pain) Qty: 30 0RF PNV cmb#95-ferrous fumarate-FA [] 28 mg iron- 800 mcg tablet 1 tab PO QDAY Patient Comments: TAKE 1 TABLET BY MOUTH EVERY DAY FOR 90 DAYS ibuprofen 800 mg tablet 800 mg PO Q6H MDD 4 PRN (Reason: pain) Qty: 120 0RF lanolin 50 % ointment 1 applic topical TID PRN (Reason: skin irritation) Qty: 15 0RF docusate sodium [Colace] 100 mg capsule 100 mg PO BID Qty: 60 0RF Tucks (witch edwardo) 50 % pads, medicated 1 pad topical BID Qty: 100 0RF hydrocortisone [Proctosol HC] 2.5 % cream with perineal applicator 1 applic IL QDAY PRN (Reason: hemorrhoids) Qty: 30 0RF ibuprofen 800 mg tablet 800 mg PO TID PRN (Reason: pain) Qty: 30 0RF Referrals: No Primary/Family,Physician [Primary Care Provider] - In 1 week Problem List Clinical Impression: Abdominal pain Patient/Caregiver Discharge Instructions Print Language: Irish
--- NOTE | 2024-09-03 03:43 | XR_ITS ---
Examination: CT abdomen and pelvis without contrast. Coronal 3-D reconstructions. Sagittal 2-D reconstructions. Date and time of exam:September 03, 2024 at 0701 hours Comparison May 31, 2023 INDICATIONS: Right upper abdominal pain and distention today CTDI: vol (mGy): 12.6 DLP: (mGycm): 751 Technique: Axial images of the abdomen have been obtained, 3 mm slice thickness Intravenous contrast material has not been administered. Low dose protocols were performed. One or more of the following dose reduction techniques were used; automated exposure control, adjustment of the mA and/or KV according to patient size, use of iterative reconstruction technique. Findings: No focal liver or splenic lesion Absent gallbladder No pancreatic or adrenal mass No renal or ureteral calculi, no hydronephrosis 6 mm fat-containing umbilical hernia No pericecal inflammatory change No bowel obstruction , minimal fluid distended small bowel loops No diverticulitis Anteverted uterus No adnexal mass Urinary bladder intact Osseous structures intact IMPRESSION: No renal or ureteral calculi, no hydronephrosis No CT findings of appendicitis bowel obstruction or diverticulitis Mild small bowel ileus versus enteritis, clinical correlation advised
--- NOTE | 2024-09-03 03:44 | XR_ITS ---
Examination: Abdomen sonogram, Limited Date and time of exam: September 03, 2024 0353 hours INDICATIONS: Right upper abdominal pain beginning 2 hours ago Technique: Real-time mathur scale transabdominal sonographic images of the upper abdomen obtained. Findings: Absent gallbladder Common bile duct 0.8 cm no stones Pancreatic head 3.3 cm Liver 16.8 cm smooth contour fatty infiltration no focal liver lesions Normal hepatopedal portal venous flow Patent IVC IMPRESSION: Absent gallbladder. Common bile duct 0.8 cm no definite stones If biliary colic is a clinical consideration, suggest MRCP follow-up
--- NOTE | 2024-09-03 04:44 | PRELIM_ITS ---
Gallbladder ultrasound. September 03, 2024 0353 hours Clinical history: RUQ tenderness Comparison: No prior study is available for comparison. Findings: The visualized liver is normal in echogenicity without mass or intrahepatic ductal dilatation. The gallbladder is not visualized, which may represent either a contracted gallbladder or prior cholecystectomy. No gallbladder calculus, wall thickening, or pericholecystic fluid is identified. The common bile duct is mildly dilated at 8.2 mm. No free fluid is demonstrated on the submitted images. Impression: Gallbladder not visualized ??? may represent contracted gallbladder or status post-cholecystectomy. Mild dilation of the common bile duct; recommend correlation with surgical history. Report Electronically Signed By: Jaquan Pope 09/03/2024 4:43:40 AM [EST]
[2024-09-03 04:55] LABS: Basophils % (Auto) 0 % (0-2.5); Eosinophils # (Auto) 0.4 Thou/mm3 (0.0-0.5); Eosinophils % (Auto) 4 % (0-10); Hemoglobin 13.9 g/dL (12.0-16.0); Immature Granulocytes % (Auto) 0 % (0-0); Immature Granulocytes Auto 0.02 Thou/mm3 (0.00-0.00); Lymphocytes # (Auto) 2.5 Thou/mm3 (1.0-4.8); Lymphocytes % (Auto) 27 % (10-50); Mean Corpuscular HGB Conc 33.9 g/dl (31.0-37.0); Mean Corpuscular Hemoglobin 29.8 pg (25.0-35.0); Mean Corpuscular Volume 88 fL (80-100); Monocytes # (Auto) 0.8 Thou/mm3 (0.0-0.8); Monocytes % (Auto) 8 % (0-12); Neutrophils # (Auto) 5.8 Thou/mm3 (1.8-7.7); Neutrophils % (Auto) 61 % (37-80); Nucleated Red Blood Cell % 0 /100 WBC (0); Platelet Count 211 Thou/mm3 (140-440); RDW Standard Deviation 41.1 fL (36.4-46.3); Red Blood Count 4.66 Miln/mm3 (4.00-5.20); White Blood Count 9.4 Thou/mm3 (3.6-11.0)
[2024-09-03] MEDS: ONDANSETRON INJ 2 MG/ML INJ 2 ML 4 MG IV (05:05)
[2024-09-03] MEDS: MORPHINE SULF INJ 10 MG/ML VIAL 6 MG IVP (05:06)
[2024-09-03] MEDS: SODIUM CHLORIDE 0.9% 1000 ML 1,000 ML 999 ML IV (05:07)
[2024-09-03 05:11] LABS: Alanine Aminotransferase 21 U/L (10-49); Albumin, Serum 4.5 gm/dL (3.5-5.0); Albumin/Globulin Ratio 1.7 (1.2-2.2); Alkaline Phosphatase 115 U/L (46-116); Amylase 50 U/L (30-118); Anion Gap 7 (7-16); Aspartate Amino Transferase 19 U/L (0-34); BUN/Creatinine Ratio 25 Ratio (12-20); Bilirubin,Direct 0.1 mg/dL (0.0-0.3); Bilirubin,Total 0.4 mg/dL (0.3-1.2); Blood Urea Nitrogen 15 mg/dL (9-23); Calcium 8.7 mg/dL (8.3-10.6); Calcium (Corrected) 8.7 mg/dL (8.5-10.1); Carbon Dioxide 27.1 mMol/L (20.0-31.0); Chloride 108 mMol/L (98-107); Creatinine (Component) 0.6 mg/dL (0.6-1.3); Estimated Creatinine Clearance 180.9 mL/min (>60); Globulin 2.7 gm/dL (2.3-3.5); Glucose 105 mg/dL (74-106); Lipase 39 U/L (12-53); Magnesium 1.8 mg/dL (1.6-2.6); Osmolality,Calculated 283 (275-295); Potassium 3.6 mMol/L (3.4-5.1); Sodium 142 mMol/L (136-145); Total Protein 7.2 gm/dL (5.7-8.2); eGFR > 60 See Note
[2024-09-03 05:14] VITALS: BP 119/78; PULSE 76; RESP 14; TEMP 36.5; O2SAT 98
[2024-09-03 05:17] VITALS: BP 119/78; PULSE 71; RESP 20; O2SAT 98
[2024-09-03 05:24] LABS: Collection Type, Urine Clean Catch
[2024-09-03 05:30] LABS: Bilirubin,Urine Negative (Negative); Blood,Urine Negative (Negative); Clarity,Urine Clear (Clear/Hazy); Color,Urine Lt-Yellow (Lt Yel-Yel); Culture Indicated,Urine Not Indicated; Glucose, Urine Negative (Negative); Ketones,Urine Negative (Negative); Leukocyte Esterase,Urine Negative (Negative); Nitrite,Urine Negative (Negative); PH,Urine 7.5 (5.0-7.0); Protein,Urine Trace (Neg - Trace); RBC,Urine 2 /hpf (0-3); Specific Gravity,Urine 1.032 (1.001-1.035); Squamous Epithelial Cell,Urine 1 /hpf (0-5); Urobilinogen,Urine Negative mg/dL (0.0-1.0); WBC,Urine 1 /hpf (0-5)
[2024-09-03 05:38] LABS: HCG Qualitative,Urine Negative
--- NOTE | 2024-09-03 06:21 | EDNOTE_ITS ---
Emergency Room Addendum Addendum Narrative: 0600: Care assumed from Dr. Bowles, the previous shift emergency physician. Past medical, surgical, social and family history reviewed. Vitals and home medications reviewed. I will assume the care of the patient at this time, pending remainder of diagnostic tests and final disposition. Please refer to the emergency department record for history and examination from initial visit.? Physical exam by me shows patient under no acute distress at this time. 0830: Patient remains clinically stable throughout the emergency department visit. Re-assessment at the time of disposition demonstrates that the patient is in no acute distress. We reviewed all the results, analysis, and treatment plans. Patient is amenable to discharge. Strict return precautions were outlined. Patient was discharged in stable condition. Diagnoses: -Abdominal pain -Gastroenteritis -Nausea, vomiting, and diarrhea RADIOLOGY Procedure(s): US gall bladder Accession Number(s): [id number] cc: Kendell Crabtree MD; Ta Bowles MD; Tio Infante MD~ Examination: Abdomen sonogram, Limited Date and time of exam: September 03, 2024 0353 hours INDICATIONS: Right upper abdominal pain beginning 2 hours ago Technique: Real-time mathur scale transabdominal sonographic images of the upper abdomen obtained. Findings: Absent gallbladder Common bile duct 0.8 cm no stones Pancreatic head 3.3 cm Liver 16.8 cm smooth contour fatty infiltration no focal liver lesions Normal hepatopedal portal venous flow Patent IVC IMPRESSION: Absent gallbladder. Common bile duct 0.8 cm no definite stones If biliary colic is a clinical consideration, suggest MRCP follow-up Dictated By: Tio Infante MD Procedure(s): CT abdomen pelvis wo con Accession Number(s): [id number] cc: Kendell Crabtree MD; Ta Bowles MD; Tio Infante MD~ Examination: CT abdomen and pelvis without contrast. Coronal 3-D reconstructions. Sagittal 2-D reconstructions. Date and time of exam:September 03, 2024 at 0701 hours Comparison May 31, 2023 INDICATIONS: Right upper abdominal pain and distention today CTDI: vol (mGy): 12.6 DLP: (mGycm): 751 Technique: Axial images of the abdomen have been obtained, 3 mm slice thickness Intravenous contrast material has not been administered. Low dose protocols were performed. One or more of the following dose reduction techniques were used; automated exposure control, adjustment of the mA and/or KV according to patient size, use of iterative reconstruction technique. Findings: No focal liver or splenic lesion Absent gallbladder No pancreatic or adrenal mass No renal or ureteral calculi, no hydronephrosis 6 mm fat-containing umbilical hernia No pericecal inflammatory change No bowel obstruction , minimal fluid distended small bowel loops No diverticulitis Anteverted uterus No adnexal mass Urinary bladder intact Osseous structures intact IMPRESSION: No renal or ureteral calculi, no hydronephrosis No CT findings of appendicitis bowel obstruction or diverticulitis Mild small bowel ileus versus enteritis, clinical correlation advised Dictated By: Tio Infante MD
[2024-09-03 07:51] VITALS: BP 120/76
[2024-09-03 07:54] VITALS: BP 120/78; PULSE 69; RESP 18; TEMP 36.7; O2SAT 99
[2024-09-03 10:02] VITALS: BP 122/70; PULSE 73; RESP 16; TEMP 36.7; O2SAT 100
== END 2024-09-03 10:03 | disposition home or self-care (01) ==
PROVIDERS: Emergency Medicine; Emergency Provider Family Medicine; PCP Family Medicine
DX: K52.9 Noninfective gastroenteritis and colitis, unspecified (principal)
CPT/HCPCS: 36415; 74176; 76705; 80053; 81001; 81025; 82150; 82248; 83690; 83735; 85025; 96361; 96374; 99284; J2270; J2405; J7030

== ENCOUNTER 2024-11-23 19:14 | Emergency (ER) | payer MEDICAID, SELFPAY ==
[2024-11-23 19:16] VITALS: BMI 32.7
[2024-11-23 19:34] VITALS: BP 145/96; PULSE 74; RESP 19; TEMP 36.6; O2SAT 99
--- NOTE | 2024-11-23 19:42 | PD.EDRME ---
Rapid Medical Screening Exam RME Arrival date/time: 11/23/24 19:14 29F with history of cholecystectomy (complicated by CBD stone and pancreatitis) presents to ED with 1 day of upper ab pain and N/V. Patient states it feels similar to when she had pancreatitis. Chief Complaint: Abdominal Pain Vital signs: Vital Signs Temperature 97.9 F 11/23/24 19:34 Pulse Rate 74 11/23/24 19:34 Respiratory Rate 19 11/23/24 19:34 Blood Pressure 145/96 H 11/23/24 19:34 Pulse Oximetry (%) 99 11/23/24 19:34
[2024-11-23] MEDS: HYDROcodone/APAP 5/325 TABLET 1 TAB PO (19:52)
[2024-11-23] MEDS: ONDANSETRON ODT 4 MG TABRAP PO (19:52)
[2024-11-23 20:05] LABS: Collection Type, Urine Clean Catch; RBC,Urine 0 /hpf (0-3)
[2024-11-23 20:09] LABS: HCG Qualitative,Urine Negative
[2024-11-23 20:11] LABS: Bilirubin,Urine Negative (Negative); Blood,Urine Negative (Negative); Clarity,Urine Clear (Clear/Hazy); Color,Urine Colorless (Lt Yel-Yel); Culture Indicated,Urine Not Indicated; Glucose, Urine Negative (Negative); Ketones,Urine Negative (Negative); Leukocyte Esterase,Urine Negative (Negative); Nitrite,Urine Negative (Negative); PH,Urine 7.0 (5.0-7.0); Protein,Urine Negative (Neg - Trace); Specific Gravity,Urine 1.011 (1.001-1.035); Squamous Epithelial Cell,Urine 1 /hpf (0-5); Urobilinogen,Urine Negative mg/dL (0.0-1.0); WBC,Urine < 1 /hpf (0-5)
[2024-11-23 20:39] LABS: Basophils # (Auto) 0.0 Thou/mm3 (0.0-0.2); Basophils % (Auto) 0 % (0-2.5); Eosinophils # (Auto) 0.5 Thou/mm3 (0.0-0.5); Eosinophils % (Auto) 5 % (0-10); Hematocrit 36.6 % (36.0-46.0); Hemoglobin 12.4 g/dL (12.0-16.0); Immature Granulocytes Auto 0.02 Thou/mm3 (0.00-0.00); Lymphocytes # (Auto) 3.0 Thou/mm3 (1.0-4.8); Lymphocytes % (Auto) 28 % (10-50); Mean Corpuscular HGB Conc 33.9 g/dl (31.0-37.0); Mean Corpuscular Hemoglobin 29.9 pg (25.0-35.0); Mean Corpuscular Volume 88 fL (80-100); Monocytes # (Auto) 0.9 Thou/mm3 (0.0-0.8); Monocytes % (Auto) 8 % (0-12); Neutrophils # (Auto) 6.3 Thou/mm3 (1.8-7.7); Neutrophils % (Auto) 59 % (37-80); Nucleated Red Blood Cell # 0.00 Thou/mm3 (0.00-0.00); Nucleated Red Blood Cell % 0 /100 WBC (0); Platelet Count 238 Thou/mm3 (140-440); RDW Standard Deviation 44.4 fL (36.4-46.3); Red Blood Count 4.15 Miln/mm3 (4.00-5.20); White Blood Count 10.8 Thou/mm3 (3.6-11.0)
[2024-11-23 22:16] LABS: Alanine Aminotransferase 24 U/L (10-49); Albumin, Serum 4.6 gm/dL (3.5-5.0); Albumin/Globulin Ratio 1.6 (1.2-2.2); Alkaline Phosphatase 108 U/L (46-116); Anion Gap 8 (7-16); Aspartate Amino Transferase 16 U/L (0-34); BUN/Creatinine Ratio 14 Ratio (12-20); Bilirubin,Total 0.3 mg/dL (0.3-1.2); Blood Urea Nitrogen 10 mg/dL (9-23); Calcium 9.5 mg/dL (8.3-10.6); Calcium (Corrected) 9.5 mg/dL (8.5-10.1); Carbon Dioxide 27.1 mMol/L (20.0-31.0); Chloride 107 mMol/L (98-107); Creatinine (Component) 0.7 mg/dL (0.6-1.3); Estimated Creatinine Clearance 153.0 mL/min (>60); Globulin 2.9 gm/dL (2.3-3.5); Glucose 95 mg/dL (74-106); Osmolality,Calculated 282 (275-295); Potassium 3.7 mMol/L (3.4-5.1); Sodium 142 mMol/L (136-145); Total Protein 7.5 gm/dL (5.7-8.2); eGFR > 60 See Note
[2024-11-23 22:29] LABS: Amphetamine/Methamp Scrn,U Negative (Negative); Barbiturate Screen,Urine Negative (Negative); Benzodiazepines Screen,Urine Negative (Negative); Benzoylecgonine Screen, Ur Negative (Negative); Fentanyl Screen,Urine Negative (Negative); Opiate Screen,Urine Negative (Negative); THC Screen,Urine Negative (Negative)
[2024-11-23 23:38] LABS: Lipase 41 U/L (12-53)
[2024-11-24 00:45] VITALS: BP 118/77; PULSE 65; RESP 18; TEMP 37.1; O2SAT 100
--- NOTE | 2024-11-24 01:55 | PD.EDADDENDU ---
Emergency Room Addendum Addendum Narrative: I did not do a history and physical exam on this patient because she eloped. She was seen by the PA. When called she was no longer in the emergency department. I did not do an exam on this patient.
--- NOTE | 2024-11-24 02:07 | PC.NURSE ---
N/A from lobby for re-eval
--- NOTE | 2024-11-24 02:14 | PC.NURSE ---
N/A from lobby for re-eval. eloped
== END 2024-11-24 02:15 | disposition left against medical advice (07) ==
PROVIDERS: Physician Assistant; Emergency Provider Emergency Medicine
DX: R10.10 Upper abdominal pain, unspecified (principal); Z53.29 Procedure and treatment not carried out because of patient's decision for other reasons
CPT/HCPCS: 36415; 80053; 80307; 81001; 81025; 83690; 85025; 99283; Q0162; A9270